=== PATIENT | male | born 1940 | race Caucasian/White ===

== ENCOUNTER → 2016-11-06 | Outpatient (CLI) | payer MEDICARE ==
[~2016-11-06] MED LIST: ALFU10TA11 PO; ASP325T; ASP325T PO; ATEN50TA PO; ATN50T; CALC0.253 PO; CLOP75TA28 PO; DPAS20025 PO; FENO145T; FLC1T PO; FOLI0.8T PO; FOLIC ACID 800MCG; GLIM4TAB PO; HYDR-2854 PO; HYDR-700 PO; ISOS5TAB PO; LINA5TAB PO; LOSA50TA6 PO; LVST20T; MTF500T PO; MULT1TAB63; MULTIVITAMIN PO; OMG1KC; OMG1KC PO; PROZASIN; RANO500T3 PO; SIMV20TA3 PO; TAMO10TA PO; TAMS0.4C2 PO; TLT2T PO; TOLT2CAP PO
== END ==
LOC: PREOP 06:19
PROVIDERS: ATTEND Internal Medicine
DX: Z01.818 Encounter for other preprocedural examination (principal); K62.5 Hemorrhage of anus and rectum

== ENCOUNTER 2016-11-08 09:30 | Day surgery (SDC) | payer MEDICARE, BC ==
[~2016-11-08] VITALS: Ht 177.8 cm; Wt 98.0 kg
[~2016-11-08 09:30] MED LIST changes: -CALC0.253 PO; -CLOP75TA28 PO; -GLIM4TAB PO; -ISOS5TAB PO; -LINA5TAB PO; -RANO500T3 PO; -SIMV20TA3 PO; -TAMS0.4C2 PO; -TLT2T PO
[2016-11-08] MEDS ORDERED: 1/2 NS IV SOLUTION 1,000 ML IV ONE (09:33)
[2016-11-08] MEDS ORDERED: FLUMAZENIL (ROMAZICON) 0.1 MG/ML 5 ML VIAL INJ PRN (09:45)
[2016-11-08] MEDS ORDERED: NALOXONE 0.4 MG/ML 1 ML (NARCAN) VIAL IVP PRN (09:45)
[2016-11-08] MEDS ORDERED: LIDOCAINE JELLY 2% (XYLOCAINE) 5 ML TUBE MM PRN (09:45)
[2016-11-08] MEDS ORDERED: MIDAZOLAM 2 MG/2 ML (VERSED) VIAL IVP PRN (09:45)
[2016-11-08] MEDS ORDERED: fentaNYL INJECTION 100 MCG/2 ML AMP IVP PRN (09:45)
[2016-11-08] MEDS ORDERED: 1/2 NS IV SOLUTION 1,000 ML IV PRN (09:45)
--- NOTE | 2016-11-08 09:48 | HISTORY AND PHYSICAL ---
DICTATING PHYSICIAN: Dr. Stroud DATE OF ADMISSION: 11/08/2016 REFERRING PHYSICIAN: Dr. Wagner Mr. Garcia is a 76-year-old white male referred by Dr. Wagner for colonoscopy for intermittent bright red blood per rectum. He has noted this over the past month. He initially did have some constipation problems and had some rectal pain albeit mild. Since that time he had intermittent bright red blood in his stool, small volume. He reports he is no longer having any pain with, bowel movements; he has been avoiding straining at the stool and has been taking stool softeners. He reports a past history of colon polyps. It has been many years since his last colonoscopy, he is not sure but places it at likely 10 years or more. He denies abdominal pain and has noted no bowel habit change and denies weight loss. PAST MEDICAL HISTORY: 1. Significant for a right hemispheric CVA in 2011. 2. He has had left carotid endarterectomy in the past. 3. He reportedly had 3 TIA's in 2016 with repeat Doppler evaluation, not revealing significant carotid disease. He is on aspirin and Plavix and it has been over 6 months since his last TIA. He reported a small infarction in 2014. For which he follows with Dr. Bender at [facility] in [place]. 4. He has a history of hyperlipidemia. 5. Hypertension. 6. Type 2 diabetes mellitus. MEDICATIONS: 1. Atenolol 50 mg daily. 2. Tolterodine 2 mg b.i.d. 3. Simvastatin 20 mg daily. 4. Triginta 5 mg daily. 5. Clopidogrel 75 mg daily. 6. Isosorbide 10 mg IR daily. 7. Ranexa 500 mg daily. SOCIAL HISTORY: He is a retired laser cutter. He had a 20 pack-year smoking history but quit 20 years ago with social alcohol intake. PAST SURGICAL HISTORY: 1. Significant for left carotid endarterectomy. 2. He also reportedly has a history of abdominal aortic aneurysm that has been stable. He is scheduled for repeat CT scan. On evaluation: He is a mildly pale-appearing white male in no acute distress. He is alert and articulate. Blood pressure 120/82. HEENT EXAMINATION: Unremarkable. NECK: Reveals no JVD or adenopathy. He has a soft left carotid bruit, none are noted on the right. CHEST: Clear. CV: Reveals a regular rate and rhythm without murmur, S3 or S4. ABDOMEN: Soft, supple without masses, organomegaly or tenderness. He does have bilateral bruits over the iliac area in the pelvis. EXTREMITIES: Reveal no cyanosis, clubbing, or edema. ASSESSMENT: 1. The patient was set-up for diagnostic colonoscopy for rectal bleeding and a past history of colon polyps. Prep instructions with split dose Colyte were given and questions were answered. 2. The patient did report, sinus congestion with some mild purulent discharge. His nasal turbinates are mildly erythematous. He was not having any dental pain, chills or fever and symptoms were better today compared to yesterday. Viral issues were discussed. Antibiotics were not recommended. A humidifier in the bedroom and considering his heart disease saline nasal spray as needed. 45 minutes of patient care time was spent, 35 [id number], 10 reviewing his electronic medical record, this does not include dictation time. There is another 15 minutes of staff time setting up colonoscopy and going over prep instructions with the patient. I thank you for the referral this pleasant gentleman. Sincerely, William Stroud Job ID: [id number] Dictated Date: 10/31/2016 18:07:00 Criminal Justice Faculty Date: 11/01/2016 11:03:33/brady
[2016-11-08 09:50] VITALS: BP 165/101
--- NOTE | 2016-11-08 10:29 | Pre-Op Note & Conscious Sedat ---
Pre-Operative Progress Note H&P Reviewed The H&P was reviewed, patient examined and no changes noted. Date H&P Reviewed: Nov 08, 2016 Time H&P Reviewed: 10:29 Conscious Sedation Pre-Proced ASA Class: 3 Airway Mallampati Classification: ([place] appropriate class) I. II. III, IV Lungs Heart ASA score ASA 1: a normal healthy patient ASA 2: a patient with a mild systemic disease (mid diabetes, controlled hypertension, obesity ASA 3: a patient with a severe systemic disease that limits activity (angina , COPD, prior Myocardial infarction) ASA 4: a patient with an incapacitating disease that is a constant threat to life (CHF, renal failure) ASA 5: a moribund patient not expected to survive 24 hrs. (ruptured aneurysm) ASA 6: a declared brain patient whose organs are being harvested. For emergent operations, add the letter E after the classification Grade 2 Sedation Plan: Analgesia, Amnesia, Plan communicated to team members, Discussed options with patient/fam, Discussed risks with patient/fam Note The patient is an appropriate candidate to undergo the planned procedure, sedation, and anesthesia. The patient immediately re-assessed prior to indication. BUNNY DUDLEY MD Nov 08, 2016 10:29
[2016-11-08] MEDS ORDERED: fentaNYL INJECTION 100 MCG/2 ML AMP ONE (11:03)
[2016-11-08] MEDS ORDERED: MIDAZOLAM 2 MG/2 ML (VERSED) VIAL ONE ×3 (11:03→11:04)
[2016-11-08] MEDS ORDERED: LIDOCAINE JELLY 2% (XYLOCAINE) 5 ML TUBE ONE (11:04)
[2016-11-08] MEDS ORDERED: GLIM4TAB PO (11:06)
[2016-11-08] MEDS ORDERED: CALC0.253 PO (11:06)
[2016-11-08] MEDS ORDERED: LINA5TAB PO (11:06)
[2016-11-08] MEDS ORDERED: CLOP75TA28 PO (11:06)
[2016-11-08] MEDS ORDERED: ISOS5TAB PO (11:06)
[2016-11-08] MEDS ORDERED: SIMV20TA3 PO (11:06)
[2016-11-08] MEDS ORDERED: RANO500T3 PO (11:06)
[2016-11-08] MEDS ORDERED: TLT2T PO (11:06)
[2016-11-08] MEDS ORDERED: TAMS0.4C2 PO (11:06)
[2016-11-08 12:00] VITALS: BP 163/85
[2016-11-08 12:30] VITALS: BP 174/91
[2016-11-08 12:40] VITALS: BP 174/91
--- NOTE | 2016-11-10 12:08 | PROCEDURE REPORT ---
PROCEDURE PHYSICIAN: BUNNY DUDLEY DATE OF PROCEDURE: 11/08/2016 INDICATION FOR THE PROCEDURE: Rectal bleeding. PROCEDURE: The patient was placed in the left lateral decubitus position. Prior to undergoing colonoscopy, digital rectal evaluation was performed. Anal sphincter tone was normal. The perianal reflux was intact. The prostate is mildly enlarged anodular to digital inspection. Anal sphincter tone was normal. No abnormalities were noted to digital inspection of the anal canal or distal rectal vault. There is a 3 x 4 mm shallow perianal ulcer. There is no evidence to suggest fistula formation. It is clean based. There is no induration, minimal tenderness. The colonoscope was then inserted into the rectum and under visualization advanced to the cecum. The cecum was identified by direction of strap. Photographic documentation was obtained. Careful inspection was made as the colonoscope was drawn. The patient tolerated the procedure well. FINDINGS: There no evidence for internal or external hemorrhoids. The rectum was unremarkable. Beginning in the mid sigmoid colon there were multiple medium size sigmoid diverticulum with haustral hypertrophy. There was no gross evidence to suggest underlying diverticulitis. One diminutive hyperplastic appearing 2 mm polyp was noted in the distal sigmoid colon. It was left considering this patient's need for antiplatelet therapy, as well as cardiovascular morbidity and age. No other sigmoid colonic abnormalities were noted. Diverticulum were noted scattered in the descending colon and transverse colon as well as hepatic flexure with no other significant abnormalities. The ascending colon and cecum were normal. ASSESSMENT: A shallow benign-appearing 3 x 4 mm perianal ulcer is noted, the most likely source of this patient's rectal bleeding. Advised barrier cream in the form of Desitin 2 to 3 times daily with gentle cleaning post bowel evacuation. The patient was reassured. He does have moderate diverticular disease not only in the sigmoid colon but scattered in the descending as well as proximal transverse colon. Would not advocate future screening colonoscopy. I thank you for the referral of this pleasant gentleman. Sincerely, Bunny Dudley Job ID: [id number] Dictated Date: 11/08/2016 12:01:39 Oil Field Technician Date: 11/10/2016 12:00:45 / brady
== END 2016-11-08 12:40 | disposition home or self-care (01) ==
LOC: SDC 09:30
PROVIDERS: ATTEND Internal Medicine
DX: K62.6 Ulcer of anus and rectum (principal); K63.5 Polyp of colon; K57.30 Diverticulosis of large intestine without perforation or abscess without bleeding; Z79.01 Long term (current) use of anticoagulants
CPT/HCPCS: 82962